=== PATIENT | female | born 1970 | race Caucasian/White ===

== ENCOUNTER → 2019-05-16 11:45 | Outpatient (CLI) | payer OTHER, SELFPAY ==
--- NOTE | ~2019-05-16 | MM_ITS ---
EXAMINATION: MM screening [facility] BI w shabbir HISTORY: Screening mammogram TECHNIQUE: Craniocaudal and mediolateral oblique 3-D tomosynthesis images were obtained and synthetic 2-D images were generated. CAD analysis was submitted and interpreted. COMPARISON: 04/01/2018, 05/18/2016, 04/09/2014 BREAST PARENCHYMAL COMPOSITION: There are scattered areas of fibroglandular density. FINDINGS: There is no evidence of suspicious mass, calcification, or architectural distortion to sugg est malignancy in either breast. There has been no suspicious interval change. IMPRESSION: 1. No mammographic evidence of malignancy. 2. Recommend routine screening mammography in one year. BI-RADS Category 1: Negative Reviewed, dictated and finalized at location A.
== END ==
PROVIDERS: Visit Provider Nurse Practitioner
DX: Z12.31 Encounter for screening mammogram for malignant neoplasm of breast (principal)
CPT/HCPCS: 77063; 77067

== ENCOUNTER → 2020-06-21 15:12 | Outpatient (CLI) | payer OTHER, SELFPAY ==
--- NOTE | ~2020-06-21 | MM_ITS ---
EXAMINATION: MM screening [facility] BI w shabbir HISTORY: Screening mammogram TECHNIQUE: Craniocaudal and mediolateral oblique 3-D tomosynthesis images were obtained and synthetic 2-D images were generated. CAD analysis was submitted and interpreted. COMPARISON: 05/16/2019, 03/24/2018, 05/18/2016 BREAST PARENCHYMAL COMPOSITION: There are scattered areas of fibroglandular density. FINDINGS: There is no evidence of suspicious mass, calcification, or architectural distortion to sugg est malignancy in either breast. There has been no suspicious interval change. IMPRESSION: 1. No mammographic evidence of malignancy. 2. Recommend routine screening mammography in one year. BI-RADS Category 1: Negative Reviewed, dictated and finalized at location A.
== END ==
PROVIDERS: Visit Provider Nurse Practitioner
DX: Z12.31 Encounter for screening mammogram for malignant neoplasm of breast (principal)
CPT/HCPCS: 77063; 77067

== ENCOUNTER → 2021-07-12 11:15 | Outpatient (CLI) | payer OTHER, SELFPAY ==
--- NOTE | ~2021-07-12 | MM_ITS ---
EXAMINATION: MM screening [facility] BI w shabbir HISTORY: Screening TECHNIQUE: Craniocaudal and mediolateral oblique 3-D tomosynthesis images were obtained and synthetic 2-D images were generated. CAD analysis was submitted and interpreted. COMPARISON: Comparison to multiple prior studies sequentially, with oldest reviewed study dated 07/2014. BREAST PARENCHYMAL COMPOSITION: There are scattered areas of fibroglandular density. FINDINGS: There is no evidence of suspicious mass, calcification, or architectural distortion to sugg est malignancy in either breast. There has been no suspicious interval change. IMPRESSION: 1. No mammographic evidence of malignancy. 2. Recommend routine screening mammography in one year. BI-RADS Category 1: Negative Reviewed, dictated and finalized at location A.
== END ==
PROVIDERS: PCP Family Medicine; Visit Provider Nurse Practitioner
DX: Z12.31 Encounter for screening mammogram for malignant neoplasm of breast (principal)
CPT/HCPCS: 77063; 77067

== ENCOUNTER 2022-05-18 07:34 | Outpatient (CLI) | payer OTHER, SELFPAY ==
--- NOTE | 2022-05-18 07:38 | ECHO_ITS ---
Patient Info Name: Rose Brown Age: 51 years : 1970 Gender: Female Ht: 66 in Wt: 200 lbs BSA: 2.09 m2 HR: 70 bpm BP: 140 / 95 mmHg Technical Quality: Good Exam Date: 05/18/2022 8:02 AM Exam Location: [facility] Patient Status: Outpatient Admit Date: 05/18/2022 Staff Ordering Physician: Freda Ramírez PAC Clay Maker: Dontrell Troncoso RDCS, RT Attending Provider: Freda Ramírez PAC Referring Physician: Desiree ARTHUR; Exam Type: CA echo doppler color flow Study Info Indications R01.1 - Cardiac murmur, unspecified Complete two-dimensional, color flow and Doppler transthoracic echocardiogram is performed. Strain analysis performed. Summary 1. Complete two-dimensional, color flow and Doppler transthoracic echocardiogram is performed. 2. Left ventricular chamber dimension is normal. 3. Left ventricular systolic function is normal, estimated at 60-65%. 4. The left ventricular diastolic function is grade I diastolic dysfunction. 5. E/e' 8 is minimally elevated. 6. Global longitudinal strain is normal at -20.1%. 7. There is mild aortic valve regurgitation. 8. There is trace mitral valve regurgitation. Left Ventricle E/e' 8 is minimally elevated. Global longitudinal strain is normal at -20.1%. Left ventricular chamber dimension is normal. Left ventricular systolic function is normal, estimated at 60-65%. The left ventricular diastolic function is grade I diastolic dysfunction. Right Ventricle Right ventricular chamber dimension is normal. Right ventricular systolic function is normal. Left Atria Left atrial chamber dimension is normal. Right Atria Right atrial chamber dimension is normal. Aortic Valve The aortic valve is trileaflet. There is no aortic valve stenosis. There is mild aortic valve regurgitation. Pulmonic Valve There is no pulmonic regurgitation. Mitral Valve There is no mitral valve stenosis. There is trace mitral valve regurgitation. Tricuspid Valve There is no tricuspid valve regurgitation. Pericardium/Pleural There is no pericardial effusion. Inferior Vena Cava Normal inferior vena cava with >50% collapse upon inspiration consistent with normal right atrial pressure, 5 mmHg. Aorta The aortic root size at the sinus of Valsalva is normal. Left Ventricular Outflow Tract Name Value Normal LVOT Doppler LVOT Peak Gradient 5 mmHg LVOT Mean Gradient 3 mmHg LVOT VTI 26 cm LVOT VTI/AV VTI Ratio 0.8 Mitral Valve Name Value Normal MV Doppler MV [place] 439 cm/s2 MV PHT 64 ms MV Area (PHT) 3.5 cm2 4.0-5.0 MV Diastolic Function MV E Peak Velocity 97 cm/s MV A Peak Velocity 61 c
== END 2022-05-18 07:35 | disposition home or self-care (01) ==
LOC: ANHCARD 07:36
PROVIDERS: PCP Family Medicine; Visit Provider Physician Assistant Medical
DX: R01.1 Cardiac murmur, unspecified (principal); I35.1 Nonrheumatic aortic (valve) insufficiency
CPT/HCPCS: 93306

== ENCOUNTER 2023-01-24 08:33 | Outpatient (CLI) | payer OTHER, SELFPAY ==
--- NOTE | ~2023-01-24 | MM_ITS ---
EXAMINATION: MM screening [facility] BI w shabbir HISTORY: Screening mammogram TECHNIQUE: Craniocaudal and mediolateral oblique 3-D tomosynthesis images were obtained and synthetic 2-D images were generated. CAD analysis was submitted and interpreted. COMPARISON: 07/12/2021, 06/21/2020, 05/16/2019 bilateral screening mammogram examinations BREAST PARENCHYMAL COMPOSITION: There are scattered areas of fibroglandular density. FINDINGS: There is a circumscribed 5 mm rounded opacity at mid depth in the outer mid to upper right breast (MLO Tomosynthesis image 21/; craniocaudal Tomosynthesis image 24/). Diagnostic right mamm ogram and right breast ultrasound examination are recommended. Otherwise no suspicious mass, architectural distortion, malignant calcification, skin thickening or r etraction or significant new or developing density of either breast is detected. IMPRESSION: 1. New 5 mm circumscribed mass, outer mid right breast 2. Diagnostic right mammogram and right breast ultrasound examination are recommended BI-RADS Category 0: Incomplete: Needs additional imaging evaluation. Reviewed, dictated and finalized at location A. E MANAGER IMPRESSION: 1. New 5 mm circumscribed mass, outer mid right breast 2. Diagnostic right mammogram and right breast ultrasound examination are recom mended BI-RADS Category 0: Incomplete: Needs additional imaging evaluation.
== END 2023-01-24 08:34 | disposition home or self-care (01) ==
LOC: ANHIMG 08:36
PROVIDERS: PCP Family Medicine; Visit Provider Nurse Practitioner
DX: Z12.31 Encounter for screening mammogram for malignant neoplasm of breast (principal); R92.8 Other abnormal and inconclusive findings on diagnostic imaging of breast
CPT/HCPCS: 77063; 77067

== ENCOUNTER → 2023-02-15 08:10 | Outpatient (CLI) | payer OTHER, SELFPAY ==
--- NOTE | ~2023-02-15 | MMUS_ITS ---
EXAMINATION: MM diagnostic [facility] RT w shabbir, US breast RT limited HISTORY: Follow-up right breast asymmetries TECHNIQUE: Additional 3-D tomosynthesis images of the right breast were performed and synthetic 2-D i mages were generated. CAD analysis was submitted and interpreted. High resolution Limited right breas t ultrasound was performed. COMPARISON: Comparison to multiple prior studies sequentially, with oldest reviewed study dated 05/18. BREAST PARENCHYMAL COMPOSITION: Breast composed of scattered areas of fibroglandular density. FINDINGS: MAMMOGRAPHIC FINDINGS: There is a small 5 mm mass in the mid lateral aspect of the right breast, middle third with low densi ty center and circumscribed margins. There are no suspicious calcifications or architectural distorti on. 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 IMPRESSION: 1. Probable benign 5 mm cluster of microcysts at 9:00, 4 cm from the nipple, corresponding to the clark mographic abnormality. 2. Recommend 6 month follow-up Limited right breast ultrasound BI-RADS category 3, probably benign findings. Reviewed, dictated and finalized at location A. S BROKER IMPRESSION: 1. Probable benign 5 mm cluster of microcysts at 9:00, 4 cm from the nipple, co rresponding to the mammographic abnormality. 2. Recommend 6 month follow-up Limited right breast ultrasound BI-RADS category 3, probably benign findings.
== END ==
PROVIDERS: PCP Obstetrics & Gynecology Gynecology; Visit Provider Obstetrics & Gynecology Gynecology
DX: R92.8 Other abnormal and inconclusive findings on diagnostic imaging of breast (principal)
CPT/HCPCS: 76642; 77061; 77065; G0279

== ENCOUNTER 2023-08-20 10:08 | Outpatient (CLI) | payer OTHER, SELFPAY ==
--- NOTE | ~2023-08-20 | US_ITS ---
US breast RT limited 08/20/2023 10:22 Indication: Follow-up right breast mass Procedure: Limited right breast ultrasound Comparison: 02/15/2023 Findings: The small mass seen on prior ultrasound examination not appreciated on the current study. N o suspicious solid or cystic lesions. Impression: 1: No evidence for malignancy in the right breast. Recommendation: Six-month follow-up screening bilateral mammogram recommended. BI-RADS CATEGORY 2 - BENIGN FINDINGS Reviewed, dictated and finalized at location B. Impression: 1: No evidence for malignancy in the right breast. Recommendation: Six-month follow-up screening bilateral mammogram recommended. BI-RADS CATEGORY 2 - BENIGN FINDINGS
== END 2023-08-20 10:09 ==
LOC: MICIMG 10:09
PROVIDERS: PCP Family Medicine; Visit Provider Obstetrics & Gynecology Gynecology
DX: N60.01 Solitary cyst of right breast (principal)
CPT/HCPCS: 76642

== ENCOUNTER 2024-01-28 08:34 | Outpatient (CLI) | payer OTHER, SELFPAY ==
--- NOTE | ~2024-01-28 | MM_ITS ---
EXAMINATION: MM screening [facility] BI w shabbir HISTORY: Screening TECHNIQUE: Craniocaudal and mediolateral oblique 3-D tomosynthesis images were obtained and synthetic 2-D images were generated. CAD analysis was submitted and interpreted. COMPARISON: Comparison to multiple prior studies sequentially, with oldest reviewed study dated 04/01. BREAST PARENCHYMAL COMPOSITION: Not dense: There are scattered areas of fibroglandular density. FINDINGS: There is no evidence of suspicious mass, calcification, or architectural distortion to sugg est malignancy in either breast. There has been no suspicious interval change. IMPRESSION: 1. No mammographic evidence of malignancy. 2. Recommend routine screening mammography in one year. BI-RADS CATEGORY 1 - NEGATIVE Reviewed, dictated and finalized at location B. ELING RAMP SUPERVISOR
== END 2024-01-28 08:35 | disposition home or self-care (01) ==
LOC: ANHIMG 08:35
PROVIDERS: PCP Family Medicine; Visit Provider Nurse Practitioner
DX: Z13.21 Encounter for screening for nutritional disorder (principal)
CPT/HCPCS: 77063; 77067